=== PATIENT | male | born 1990 | race Two or more races ===

== ENCOUNTER 2021-03-19 16:20 | Emergency (ER) | payer SELFPAY ==
[~2021-03-19] VITALS: Ht 177.8 cm; Wt 65.8 kg
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
[2021-03-19] MEDS ORDERED: IBUPROFEN 600 MG TABLET PO ONE (17:00)
[2021-03-19] MEDS ORDERED: IBUPROFEN 600 MG TABLET ONE (17:03)
[2021-03-19] MEDS ORDERED: IBUP-1955 PO (17:38)
[2021-03-19] MEDS ORDERED: BACI30OI9 TP (17:38)
--- NOTE | 2021-03-19 17:47 | NUR ---
Patient discharged to home in stable condition. Written and verbal after care instructions given. Patient verbalizes understanding of instruction.
[2021-03-19 17:48] VITALS: BP 121/63
== END 2021-03-19 17:48 | disposition home or self-care (01) ==
LOC: ER 16:29
DX: S50.312A Abrasion of left elbow, initial encounter (principal); S80.212A Abrasion, left knee, initial encounter; S50.812A Abrasion of left forearm, initial encounter; M25.552 Pain in left hip; V00.131A Fall from skateboard, initial encounter; Y93.51 Activity, roller skating (inline) and skateboarding; Y92.89 Other specified places as the place of occurrence of the external cause; Y99.8 Other external cause status
CPT/HCPCS: 73080-TC; 73090-TC; 73564-TC